=== PATIENT | female | born 1970 | race Two or more races ===

== ENCOUNTER 2024-07-04 19:11 | Emergency (ER) | payer MEDICAID, OTHER ==
[~2024-07-04] VITALS: Ht 157.5 cm; Wt 56.7 kg
[2024-07-04] MEDS ORDERED: ONDANSETRON HCL/PF 4 MG/2 ML VIAL ONE (19:42)
[2024-07-04] MEDS ORDERED: FENTANYL PF 100MCG/2ML AMPUL ONE (19:42)
[2024-07-04] MEDS: ONDANSETRON HCL/PF - ER 4 MG/2 ML VIAL IV ONE (19:46)
[2024-07-04] MEDS: FENTANYL PF 100MCG/2ML AMPUL IV ONE (19:48)
[2024-07-04 20:01] LABS: BASOPHILS # (AUTO) 0.1 K/uL (0.0-0.2); EOSINOPHILS # (AUTO) 0.1 K/uL (0.0-0.7); EOSINOPHILS % (AUTO) 1.4 % (0.0-6.0); HEMATOCRIT 36 % (33-45); LYMPHOCYTES # (AUTO) 2.7 K/uL (0.8-4.8); LYMPHOCYTES % (AUTO) 52.9 % (20.0-44.0); MEAN CORPUSCULAR HEMOGLOBIN 31 PG (26.0-33.0); MEAN CORPUSCULAR HGB CONC 34 g/dl (31.0-36.0); MEAN CORPUSCULAR VOLUME 92 fL (82-100); MONOCYTES # (AUTO) 0.4 K/uL (0.1-1.30); MONOCYTES % (AUTO) 6.9 % (2.0-12.0); NEUTROPHILS % (AUTO) 37.8 % (43.0-81.0); PLATELET COUNT (AUTO) 254 K/uL (150-450); RED BLOOD CELL COUNT(AUTO) 3.89 MIL/uL (4.0-5.2); RED CELL DISTRIBUTION WIDTH 13.8 % (11.5-15.0); WHITE BLOOD COUNT (AUTO) 5.2 K/uL (4.3-11.0)
[2024-07-04 20:07] LABS: ALBUMIN 4.6 g/dL (3.4-5.0); BILIRUBIN,TOTAL 0.7 mg/dL (0.2-1.0); CALCIUM, SERUM 10.1 mg/dL (8.5-10.1); CREATININE 0.7 mg/dL (0.6-1.3); POTASSIUM 2.9 mmol/L (3.5-5.1); TOTAL PROTEIN, SERUM 8.1 g/dL (6.4-8.2)
[2024-07-04] MEDS ORDERED: HYDROMORPHONE 1 MG/1 ML DISP.SYRIN ONE (21:05)
[2024-07-04] MEDS: HYDROMORPHONE 1 MG/1 ML DISP.SYRIN IV ONE (21:11)
[2024-07-04] MEDS ORDERED: IV NS 0.9% 250 ML IV ONE (21:28)
[2024-07-04] MEDS ORDERED: CT SWABBABLE VALVE TRANS SET 1 EA INFUS.SET MC ONE (21:28)
[2024-07-04] MEDS ORDERED: IOHEXOL-300 100 ML VIAL IV ONE (21:28)
[2024-07-04] MEDS ORDERED: POTASSIUM CHLORIDE 20 MEQ TAB.PRT.SR PO ONE (22:53)
[2024-07-04] MEDS ORDERED: KETOROLAC TROMETHAMINE INJ 30 MG/ML VIAL ONE (22:53)
[2024-07-04] MEDS: POTASSIUM CHLORIDE 20 MEQ TAB.PRT.SR PO ONE (23:00)
[2024-07-04] MEDS: KETOROLAC TROMETHAMINE INJ 30 MG/ML VIAL IV ONE (23:00)
[2024-07-04] MEDS ORDERED: IBUP-1490 PO (23:42)
[2024-07-04] MEDS ORDERED: CYCL10TA9 PO (23:42)
[2024-07-04] MEDS ORDERED: HYDR-3972 PO (23:42)
[2024-07-05] MEDS ORDERED: ONDANSETRON HCL/PF 4 MG/2 ML VIAL ONE (00:24)
[2024-07-05] MEDS: ONDANSETRON HCL/PF - ER 4 MG/2 ML VIAL IV ONE (00:26)
[2024-07-05 01:27] VITALS: BP 112/73; TEMP 97; O2SAT 97
== END 2024-07-05 01:37 | disposition home or self-care (01) ==
LOC: EDBD 19:13 → ER 19:13
DX: S20.211A Contusion of right front wall of thorax, initial encounter (principal); S30.1XXA Contusion of abdominal wall, initial encounter; R94.31 Abnormal electrocardiogram [ECG] [EKG]; Z60.2 Problems related to living alone; V49.9XXA Car occupant (driver) (passenger) injured in unspecified traffic accident, initial encounter; Y93.89 Activity, other specified; Y92.415 Exit ramp or entrance ramp of street or highway as the place of occurrence of the external cause; Y99.8 Other external cause status
CPT/HCPCS: 99285; 71260; 96374; 96375; 71045; 93005; 73130; 74177; 85025; 83690; 36415; 80053; 84484 ×2; 96376; J1885; J3010; J2405 ×4; J7050; Q9967; J1171